=== PATIENT | female | born 1995 | race African-American/Black ===

== ENCOUNTER 2018-08-19 22:27 | Emergency (ER) | payer SELFPAY ==
[2018-08-19 22:41] VITALS: BP 150/82
--- NOTE | 2018-08-19 23:39 | ER Document Report ---
ED Allergic Reaction - General Mode of Arrival: Ambulatory Information source: Patient - General Chief Complaint: Allergic Reaction Stated Complaint: ALLERGIC REACTION/RASH Time Seen by Provider: 08/19/18 23:36 Notes: Patient is a 22 year old female presenting to the emergency department complaining of a possible allergic reaction. Patient states she sprayed Off! bug spray on her body and she became itchy and red on her bilateral arms. Patient denies any swelling of mouth, throat or tongue or trouble breathing. Patient reports she is currently 11 weeks . (ANNETTA CEDENO) - Related Data Allergies/Adverse Reactions: mushroom Allergy (Verified 08/19/18 23:08) Past Medical History - General Information source: Patient - Social History Smoking Status: Never Smoker Chew tobacco use (# tins/day): - unk Frequency of alcohol use: None Drug Abuse: None Family History: Reviewed & Not Pertinent Patient has suicidal ideation: No Patient has homicidal ideation: No Review of Systems - Review of Systems Constitutional: No symptoms reported EENT: No symptoms reported Cardiovascular: No symptoms reported Respiratory: No symptoms reported Gastrointestinal: No symptoms reported Genitourinary: No symptoms reported Female Genitourinary: No symptoms reported Musculoskeletal: No symptoms reported Skin: See HPI Hematologic/Lymphatic: No symptoms reported Neurological/Psychological: No symptoms reported -: Yes All other systems reviewed and negative Physical Exam - General General appearance: Appears well, Alert In distress: None - HEENT Head: Normocephalic, Atraumatic Eyes: Normal Conjunctiva: Normal Extraocular movements intact: Yes Pupils: PERRL Mucous membranes: Normal Neck: Normal - Respiratory Respiratory status: No respiratory distress Chest status: Nontender Breath sounds: Normal Chest palpation: Normal - Cardiovascular Rhythm: Regular Heart sounds: Normal auscultation Murmur: No Friction rub: No Gallop: None auscultated - Abdominal Inspection: Normal Distension: No distension Bowel sounds: Normal Tenderness: Nontender Organomegaly: No organomegaly - Back Back: Normal - Extremities General upper extremity: Normal ROM General lower extremity: Normal ROM - Neurological Neuro grossly intact: Yes Cognition: Normal Orientation: AAOx4 Lv Coma Scale Eye Opening: Spontaneous Lv Coma Scale Verbal: Oriented Stuart Coma Scale Motor: Obeys Commands Stuart Coma Scale Total: 15 Speech: Normal - Psychological Associated symptoms: Normal affect, Normal mood - Skin Skin Temperature: Warm Skin Moisture: Dry Skin irregularity: Erythema Character of irregularity: Urticarial - BUE - Vital signs Vitals: Temp Pulse Resp BP Pulse Ox 98.1 F 95 20 150/82 H 100 08/19/18 22:39 08/19/18 22:39 08/19/18 22:39 08/19/18 22:39 08/19/18 22:39 Course - Re-evaluation Re-evalutation: Patient comes in for urticaria and itching after applying bug spray that irritated her skin. No respiratory distress, swelling, lightheadedness. Patient is and needs documentation that she is so she can follow-up for medical care. Urine hCG is positive. Stable for discharge. Take Benadryl as needed. Return if any worsening or concerning symptoms. AVSS. NAD. Grateful for care. Understands agrees with plan. Absolutely no abdominal or pelvic cramping, pain, or tenderness to palpation (JOSE CARLOS BAE) - Vital Signs Vital signs: Temp Pulse Resp BP Pulse Ox 98.1 F 95 20 150/82 H 100 08/19/18 22:39 08/19/18 22:39 08/19/18 22:39 08/19/18 22:39 08/19/18 22:39 - Laboratory Laboratory results interpreted by me: 08/20/18 00:09 Urine Protein 30 H Urine Urobilinogen 4.0 H Ur Leukocyte Esterase LARGE H Urine HCG, Qual POSITIVE H Discharge - Discharge Clinical Impression: Allergic dermatitis Qualifiers: Weeks of gestation: unspecified Qualified Code(s): Z34.90 - Encounter for supervision of normal , unspecified, unspecified trimester Condition: Stable Disposition: HOME, SELF-CARE Instructions: Contact Dermatitis ([facility]), ([facility]) Additional Instructions: Please do not use that particular brand of bug spray again. Please take a shower when you get home to get it off of you and do not put the same close back on without washing them. Please take Benadryl as needed. Follow-up with your doctor this week. Prescriptions: Diphenhydramine HCl [Benadryl] 25 mg PO TIDP PRN #30 capsule PRN Reason: Prednisone 20 mg PO DAILY #3 tablet Scribe Attestation: 08/20/18 04:55 I personally performed the services described in the documentation, reviewed and edited the documentation which was dictated to the scribe in my presence, and it accurately records my words and actions. (JOSE CARLOS BAE) Scribe Documentation - Scribe Written by Shen:: Shen Alvarado, 08/19/2018 23:59 acting as scribe for :: Jameel
[2018-08-19] MEDS ORDERED: PREDNISONE 20 MG TABLET PO ONE (23:40)
[2018-08-19] MEDS ORDERED: DIPHENHYDRAMINE HCL 25 MG CAPSULE PO ONE (23:40)
[2018-08-20 00:44] LABS: APPEARANCE,URINE CLOUDY; BILIRUBIN,URINE NEGATIVE (NEGATIVE); COLOR,URINE YELLOW; GLUCOSE, URINE NEGATIVE (NEGATIVE); KETONES,URINE NEGATIVE (NEGATIVE); LEUKOCYTE ESTERASE,URINE LARGE (NEGATIVE); NITRITE,URINE NEGATIVE (NEGATIVE); PROTEIN,URINE 30 mg/dL (NEGATIVE); URINE SPECIFIC GRAVITY 1.027
== END 2018-08-20 00:53 | disposition home or self-care (01) ==
LOC: ER 22:27
DX: O26.91 Pregnancy related conditions, unspecified, first trimester (principal); L23.9 Allergic contact dermatitis, unspecified cause; Z3A.11 11 weeks gestation of pregnancy
CPT/HCPCS: 99283; 81025; 81001; J7512